=== PATIENT | female | born 1960 | race Caucasian/White ===

== ENCOUNTER 2020-06-30 23:00 | Inpatient (IN) | payer OTHER ==
[~2020-06-30] VITALS: Ht 165.1 cm; Wt 125.0 kg
--- NOTE | 2020-06-30 23:30 | NUR ---
RESPONDED TO STROKE ALERT BED 3, PT IN CT SCAN. DR. IVY FROM [facility] TELEMED READY FOR CONSULT
[2020-06-30] MEDS ORDERED: iohexol 350MG/ML 100ml bottle IV ONE ×2 (23:33→23:34)
--- NOTE | 2020-06-30 23:45 | NUR ---
CHECK ON PT STILL IN CT, HAVING CTA. RETURN TO ROOM, DR. IVY COMPLETES NEURO EXAM. PT FEELS RIGHT ARM IS WEAKER THAN NORMAL, NO DRIFT. DESCRIBES NUMBNESS TO RIGHT HAND AND DECREASED SENSATION TO RIGHT FACE. AFTER MUCH DISCUSSION WITH DR. IVY PT BELIEVES THAT HER SYMPTOMS ARE SIGNIFICANT AND COULD BE DISABILING. B/P IS ELEVATED, IVS BEING STARTED.
--- NOTE | 2020-06-30 23:50 | NUR ---
B/P 215/175 HR 98 LABETELOL 5MG ADMIN ORDER
[2020-06-30] MEDS ORDERED: aspirin 325mg tablet PO ONE (23:55)
--- NOTE | 2020-07-01 00:02 | NUR ---
IAM INCREASED TO 10MG/HR
--- NOTE | 2020-07-01 00:04 | NUR ---
10 MG OF LABETALOL GIVEN PER TELE NEURO MD
[2020-07-01] MEDS ORDERED: LORazepam 2 mg/ml vial IV STA (00:05)
--- NOTE | 2020-07-01 00:10 | NUR ---
Tpa IS MIXED AND READY, CONTINUE TO MANAGE B/P CARDENE IS AT 10MG/HR 2ND IV READY
--- NOTE | 2020-07-01 00:17 | NUR ---
CARDENE INCREASED TO 15MG/HR BP 196/76, HR 83 92%O2ON RA
--- NOTE | 2020-07-01 00:20 | NUR ---
B/P IS STABALIZING, PT NOW REPORTS SYMPTOMS HAVE IMPROVED, HAS MINOR NUMBNESS/TINGLING TO RIGHT 2 FINGERS, SHE NO LONGER FEELS THAT THESE SYMPTOMS WOULD NOT CAUSE A DISABILITY. " I FEEL MUCH BETTER" DR. MOREL AND DR. IVY NOTIFIED OF IMPROVMENT, PLAN TO HOLD ON THE TPA. PT AND DAUGHTER (ON PHONE) VERBALIZE UNDERSTANDING AND AGREE WITH PLAN OF CARE.
--- NOTE | 2020-07-01 00:26 | NUR ---
PLACED ON 3L O2 O2 INCREASED TO 93%
--- NOTE | 2020-07-01 00:26 | NUR ---
183/74, HR 88, 96%O2 3L, TELE NEURO ORDERED ASA 324 AN DTO HOLD tsa
[2020-07-01] MEDS ORDERED: aspirin 325mg tablet PO ONE ×2 (00:30→00:35)
[2020-07-01] MEDS ORDERED: NO HOME MEDS (00:56)
[2020-07-01] MEDS ORDERED: labetalol 20mg/4ml (5mg/ml) syringe IV ONE (01:00)
[2020-07-01] MEDS ORDERED: niCARdipine I.V. 50 MG in normal saline 250ml IV soln 230 ML IV SCH (01:00)
[2020-07-01 01:04] LABS: BASOPHILS # (AUTO) 0.1 X10'3 (0-0.2); BASOPHILS % (AUTO) 0.7 % (0-1); EOSINOPHILS % (AUTO) 0.2 % (0-6); HEMOGLOBIN 14.7 g/dl (12.0-16.0); LYMPHOCYTES % (AUTO) 15.5 % (21-51); MEAN CORPUSCULAR HEMOGLOBIN 28.7 PG (27.0-31.0); MEAN CORPUSCULAR HGB CONC 34.2 g/dL (33.0-36.5); MEAN CORPUSCULAR VOLUME 84.1 FL (78-98); MEAN PLATELET VOLUME 8.4 FL (7.4-10.4); MONOCYTES # (AUTO) 0.4 X10'3 (0-0.9); MONOCYTES % (AUTO) 2.7 % (2-12); NEUTROPHILS # (AUTO) 10.7 X10'3 (1.8-7.7); NEUTROPHILS % (AUTO) 80.9 % (42-75); PLATELET COUNT 271 X10'3 (140-440); RED BLOOD COUNT 5.11 X10'6 (4.20-5.60); RED CELL DISTRIBUTION WIDTH 14.6 % (11.5-14.5); WHITE BLOOD COUNT 13.2 X10'3 (4.5-11.0)
[2020-07-01] MEDS: niCARDipine-NS 40mg/200ml IVPB 200 ML IV SCH ×2 (01:04→04:24)
[2020-07-01 01:13] LABS: PARTIAL THROMBOPLASTIN TIME 28 SECONDS (22-32)
[2020-07-01 01:16] LABS: ALANINE AMINOTRANSFERASE 19 U/L (12-78); ALBUMIN 3.6 G/DL (3.4-5.0); ALBUMIN/GLOBULIN RATIO 0.8 (1.1-1.5); ALKALINE PHOSPHATASE 119 IU/L (46-116); ANION GAP 11 (8-16); ASPARTATE AMINO TRANSFERASE 13 U/L (10-37); BILIRUBIN,TOTAL 0.4 MG/DL (0.1-1.0); BLOOD UREA NITROGEN 18 MG/DL (7-18); BUN/CREATININE RATIO 18.4 (6.6-38.0); CALCIUM 8.7 MG/DL (8.5-10.1); CHLORIDE 101 MMOL/L (99-107); CREATININE 0.98 MG/DL (0.40-0.90); GLUCOSE 141 MG/DL (70-104); POTASSIUM 3.4 MMOL/L (3.5-5.1); SODIUM 138 MMOL/L (135-145); TOTAL CARBON DIOXIDE 25.6 MMOL/L (24-32); TOTAL PROTEIN 8.3 G/DL (6.4-8.2); eGFR 58 ML/MIN
--- NOTE | 2020-07-01 01:17 | NUR ---
PT DOING WELL, SYMPTOMS REMAIN STABLE, 2 FINGERS WITH TINGLING. WEANING CARDENE. NOW AT 10MG/HR.
--- NOTE | 2020-07-01 02:02 | NUR ---
DR. COREAS AT BEDSIDE.
[2020-07-01] MEDS ORDERED: magnesium Cl slow-release 64mg tablet PO PRN (02:10)
[2020-07-01] MEDS ORDERED: potassium Cl 20 mEq SR tablet PO PRN (02:10)
[2020-07-01] MEDS ORDERED: acetaminophen 650mg rectal suppository RC PRN (02:10)
[2020-07-01] MEDS ORDERED: magnesium 4gm in 100ml NS 100 ML IV PRN (02:10)
[2020-07-01] MEDS ORDERED: HYDROcodone/acetaminophen 5mg/325mg tablet PO PRN (02:10)
[2020-07-01] MEDS ORDERED: potassium CL 10mEq/100ml bag 100 ML IV PRN ×2 (02:10)
[2020-07-01] MEDS ORDERED: metoclopramide 5 mg/ml inj IV PRN (02:10)
[2020-07-01] MEDS ORDERED: mag hydrox/Alum hydrox/simeth 30ml oral suspension PO PRN (02:10)
[2020-07-01] MEDS ORDERED: acetaminophen 325mg tablet PO PRN ×2 (02:10)
[2020-07-01] MEDS ORDERED: bisacodyl 10mg suppository rectal RC PRN (02:10)
[2020-07-01] MEDS ORDERED: ondansetron/PF 4mg/2ml inj IV PRN (02:10)
[2020-07-01] MEDS ORDERED: hydrALAZINE 20mg/ml inj. IV PRN ×2 (02:10→08:10)
[2020-07-01] MEDS ORDERED: magnesium hydroxide 30ml (MOM) UD suspension PO PRN (02:10)
[2020-07-01] MEDS ORDERED: magnesium 2GM in 50ml NS 50 ML IV PRN (02:10)
[2020-07-01] MEDS ORDERED: HYDROcodone/acetaminophen 10/325mg tab PO PRN (02:10)
[2020-07-01] MEDS: normal saline 1000ml 1,000 ML IV SCH ×2 (02:22→13:52)
[2020-07-01] MEDS ORDERED: LORazepam 2 mg/ml vial IV PRN (02:25)
[2020-07-01 02:34] LABS: HEMOGLOBIN A1C 5.6 % (4.5-6.2)
[2020-07-01 02:39] LABS: PHOSPHORUS 2.1 MG/DL (2.3-4.5)
[2020-07-01 08:00] VITALS: BP 163/99
[2020-07-01] MEDS: K and/or MAG REPLACEMENT MC SCH ×2 (08:00→20:24)
[2020-07-01] MEDS: potassium Cl 20 mEq SR tablet PO PRN ×3 (10:03→20:53)
[2020-07-01] MEDS: aspirin 325mg tablet PO SCH (10:04)
[2020-07-01] MEDS: atorvastatin 20mg tablet PO SCH (10:04)
[2020-07-01] MEDS: enoxaparin 40mg/0.4ml syringe SUBCUT SCH (10:05)
[2020-07-01 11:00] VITALS: BP 117/58
[2020-07-01] MEDS ORDERED: diazepam inj 5 MG/ML inj. IV ONE (12:05)
[2020-07-01] MEDS ORDERED: diazepam 5mg tablet PO ONE (12:30)
--- NOTE | 2020-07-01 12:35 | NUR ---
New order from Dr Martínez to give pt Valium 5mg PO once before MRI. And to stop the Valium 10mg IV due to pt stating that's too much for her.
[2020-07-01 15:00] VITALS: BP 141/76
--- NOTE | 2020-07-01 15:19 | NUR ---
PAGER ID: [phone] MESSAGE: [id number] Shimon Galeano Unable to do MRI. Severe claustrophobia and too large for procedure. Just FYI. Do 1237
--- NOTE | 2020-07-01 15:34 | NUR ---
Per Dr. Martínez's request, contacted Stroke RN d/t unobtainable MRI. Per Ekta Addendum: 07/01/20 at 1537 by Shraddha Graham RN Continuation... Per Ekta (Stroke RN) submit request for tele neuro consult via intranet and put in Dr. Martínez as requesting physician. Neurologist will reach out to hospitalist and discuss case with him. Instructions carried out.
--- NOTE | 2020-07-01 17:25 | NUR ---
Problems reprioritized. Patient report given, questions answered & plan of care reviewed with Pat RN.
[2020-07-01 18:00] VITALS: BP 140/79
--- NOTE | 2020-07-01 18:19 | NUR ---
PATIENT RESTING WITH NO C/O AT THIS TIME. ORIENTED TO ROOM. CALL LIGHT IN REACH, BED LOW AND LOCKED. Addendum: 07/01/20 at 1920 by Janna Eaton RN Amended: Links added.
[2020-07-01] MEDS ORDERED: temazepam 15mg capsule PO PRN (21:00)
[2020-07-01 22:00] VITALS: BP 133/61
[2020-07-02] MEDS: normal saline 1000ml 1,000 ML IV SCH (01:30)
[2020-07-02 02:00] VITALS: BP 134/69
[2020-07-02 04:39] LABS: CLARITY,URINE CLEAR (Clear); COLOR,URINE STRAW (Yellow); GLUCOSE, URINE NEGATIVE (Neg); KETONES,URINE NEGATIVE (Neg); LEUKOCYTE ESTERASE ,URINE TRACE (Neg); NITRITES, URINE NEGATIVE (Neg); OCCULT BLOOD,URINE TRACE-INTACT (Neg); PROTEIN,URINE NEGATIVE (Neg); UROBILINOGEN,URINE 0.2 E.U/dL (0.2-1.0)
[2020-07-02 04:45] LABS: UA COLLECTION TYPE VOIDED
[2020-07-02 04:46] LABS: URINE AMPHETAMINE SCREEN NEGATIVE (Neg); URINE BARBITUATE SCREEN NEGATIVE (Neg); URINE BENZODIAZEPINES SCREEN NEGATIVE (Neg); URINE CANNABINOID SCREEN NEGATIVE (Neg); URINE COCAINE SCREEN NEGATIVE (Neg); URINE METHADONE SCREEN NEGATIVE (Neg); URINE OPIATE SCREEN NEGATIVE (Neg); URINE PHENCYCLIDINE SCREEN NEGATIVE (Neg); WBC,URINE NONE SEEN /HPF (0-4)
[2020-07-02 04:47] LABS: BACTERIA,URINE NONE SEEN /HPF (Neg); RBC,URINE NONE SEEN /HPF (0-2); SQUAMOUS EPITHELIAL CELL,UR FEW /LPF (FEW)
[2020-07-02 05:46] LABS: BASOPHILS # (AUTO) 0.1 X10'3 (0-0.2); BASOPHILS % (AUTO) 0.9 % (0-1); EOSINOPHILS # (AUTO) 0.2 X10'3 (0-0.9); EOSINOPHILS % (AUTO) 2.1 % (0-6); HEMATOCRIT 38.1 % (35.0-45.0); HEMOGLOBIN 12.9 g/dl (12.0-16.0); LYMPHOCYTES # (AUTO) 3.6 X10'3 (1.1-4.8); LYMPHOCYTES % (AUTO) 34.1 % (21-51); MEAN CORPUSCULAR HEMOGLOBIN 28.7 PG (27.0-31.0); MEAN CORPUSCULAR HGB CONC 33.9 g/dL (33.0-36.5); MEAN CORPUSCULAR VOLUME 84.8 FL (78-98); MEAN PLATELET VOLUME 8.5 FL (7.4-10.4); MONOCYTES # (AUTO) 0.6 X10'3 (0-0.9); MONOCYTES % (AUTO) 6.1 % (2-12); NEUTROPHILS # (AUTO) 5.9 X10'3 (1.8-7.7); NEUTROPHILS % (AUTO) 56.8 % (42-75); PLATELET COUNT 258 X10'3 (140-440); RED BLOOD COUNT 4.49 X10'6 (4.20-5.60); RED CELL DISTRIBUTION WIDTH 14.6 % (11.5-14.5); WHITE BLOOD COUNT 10.4 X10'3 (4.5-11.0)
[2020-07-02 05:52] LABS: ALANINE AMINOTRANSFERASE 16 U/L (12-78); ALBUMIN/GLOBULIN RATIO 0.8 (1.1-1.5); ALKALINE PHOSPHATASE 101 IU/L (46-116); ANION GAP 8 (8-16); ASPARTATE AMINO TRANSFERASE 11 U/L (10-37); BILIRUBIN,TOTAL 0.5 MG/DL (0.1-1.0); BLOOD UREA NITROGEN 15 MG/DL (7-18); BUN/CREATININE RATIO 19.2 (6.6-38.0); CALCIUM 8.2 MG/DL (8.5-10.1); CHLORIDE 108 MMOL/L (99-107); CHOL/HDL RATIO 5.1 (0.00-4.99); CHOLESTEROL 152 MG/DL (0-200); CREATININE 0.78 MG/DL (0.40-0.90); GLUCOSE 111 MG/DL (70-104); HDL CHOLESTEROL 30 MG/DL (35-60); LDL CHOLESTEROL 112 MG/DL (50-100); PHOSPHORUS 2.8 MG/DL (2.3-4.5); POTASSIUM 3.9 MMOL/L (3.5-5.1); SODIUM 142 MMOL/L (135-145); TOTAL CARBON DIOXIDE 25.7 MMOL/L (24-32); TOTAL PROTEIN 6.7 G/DL (6.4-8.2); TRIGLYCERIDES 97 MG/DL (20-135); eGFR 76 ML/MIN
--- NOTE | 2020-07-02 06:25 | NUR ---
Problems reprioritized. Patient report given, questions answered & plan of care reviewed with Catina CALABRESE.
--- NOTE | 2020-07-02 06:31 | NUR ---
Patient in room MED 316. I have received report from BHARATI Dillard and had the opportunity to ask questions and assume patient care.
[2020-07-02] MEDS: K and/or MAG REPLACEMENT MC SCH (08:00)
[2020-07-02] MEDS: aspirin 325mg tablet PO SCH (09:04)
[2020-07-02] MEDS: atorvastatin 20mg tablet PO SCH (09:10)
[2020-07-02] MEDS: enoxaparin 40mg/0.4ml syringe SUBCUT SCH (09:11)
[2020-07-02 10:00] VITALS: BP 158/56
[2020-07-02] MEDS ORDERED: ASPI81TA52 PO (11:03)
--- NOTE | 2020-07-02 13:37 | NUR ---
Pt stable for discharge home. Provided discharge instructions and education. Answered any questions/concerns pt may have. No new medications needed to be sent to pharmacy. PIV removed, cannula intact. Belongings sent with pt. Pt walked down to lobby where pt friend picked her up.
== END 2020-07-02 13:38 | disposition home or self-care (01) | DRG 69 ==
LOC: ER 23:01 → ED HOLD 07-01 02:09 → PCU 3S 07-01 08:16 → MED 3N 07-01 17:46
PROVIDERS: ADMIT Family Medicine; ATTEND Family Medicine
DX: G45.9 Transient cerebral ischemic attack, unspecified (principal); I16.1 Hypertensive emergency; Z68.45 Body mass index [BMI] 70 or greater, adult; E03.9 Hypothyroidism, unspecified; E66.01 Morbid (severe) obesity due to excess calories; E87.6 Hypokalemia; F43.10 Post-traumatic stress disorder, unspecified; D72.829 Elevated white blood cell count, unspecified; J45.909 Unspecified asthma, uncomplicated; Z86.73 Personal history of transient ischemic attack (TIA), and cerebral infarction without residual deficits
CPT/HCPCS: 36415; 70450; 70496; 70498; 71045; 80053; 80061; 80305; 81001; 82948; 83036; 83735; 83880; 84100; 84443; 85025; 85610; 85651; 85730; 86140; 86885; 86900; 86901; 87081; 93005; 93306; 97161; 97530; 99291; G0378; J1650; J2060; J3490; J7030; J7050; Q9967

== ENCOUNTER 2020-07-03 16:06 | Inpatient (IN) | payer OTHER ==
[~2020-07-03] VITALS: Ht 165.1 cm; Wt 141.0 kg
[~2020-07-03 16:06] MED LIST: ASPI81TA52 PO
[2020-07-03 16:50] LABS: BASOPHILS # (AUTO) 0.1 X10'3 (0-0.2); BASOPHILS % (AUTO) 0.8 % (0-1); EOSINOPHILS # (AUTO) 0.1 X10'3 (0-0.9); EOSINOPHILS % (AUTO) 0.9 % (0-6); HEMATOCRIT 42.5 % (35.0-45.0); HEMOGLOBIN 14.1 g/dl (12.0-16.0); LYMPHOCYTES # (AUTO) 3.1 X10'3 (1.1-4.8); LYMPHOCYTES % (AUTO) 24.5 % (21-51); MEAN CORPUSCULAR HEMOGLOBIN 27.8 PG (27.0-31.0); MEAN CORPUSCULAR HGB CONC 33.2 g/dL (33.0-36.5); MEAN PLATELET VOLUME 8.6 FL (7.4-10.4); MONOCYTES # (AUTO) 0.6 X10'3 (0-0.9); MONOCYTES % (AUTO) 5.1 % (2-12); NEUTROPHILS # (AUTO) 8.6 X10'3 (1.8-7.7); NEUTROPHILS % (AUTO) 68.7 % (42-75); PLATELET COUNT 283 X10'3 (140-440); RED BLOOD COUNT 5.06 X10'6 (4.20-5.60); RED CELL DISTRIBUTION WIDTH 14.6 % (11.5-14.5); WHITE BLOOD COUNT 12.5 X10'3 (4.5-11.0)
[2020-07-03 17:05] LABS: PARTIAL THROMBOPLASTIN TIME 30 SECONDS (22-32)
[2020-07-03 17:07] LABS: ALANINE AMINOTRANSFERASE 22 U/L (12-78); ALBUMIN 3.5 G/DL (3.4-5.0); ALBUMIN/GLOBULIN RATIO 0.8 (1.1-1.5); ALKALINE PHOSPHATASE 127 IU/L (46-116); ANION GAP 9 (8-16); ASPARTATE AMINO TRANSFERASE 15 U/L (10-37); BILIRUBIN,TOTAL 0.5 MG/DL (0.1-1.0); BLOOD UREA NITROGEN 13 MG/DL (7-18); BUN/CREATININE RATIO 15.9 (6.6-38.0); CALCIUM 8.6 MG/DL (8.5-10.1); CHLORIDE 102 MMOL/L (99-107); CREATININE 0.82 MG/DL (0.40-0.90); GLUCOSE 100 MG/DL (70-104); POTASSIUM 3.6 MMOL/L (3.5-5.1); SODIUM 139 MMOL/L (135-145); TOTAL CARBON DIOXIDE 27.8 MMOL/L (24-32); TOTAL PROTEIN 7.8 G/DL (6.4-8.2); eGFR 71 ML/MIN
[2020-07-03] MEDS ORDERED: mag hydrox/Alum hydrox/simeth 30ml oral suspension PO PRN (17:20)
[2020-07-03] MEDS ORDERED: magnesium hydroxide 30ml (MOM) UD suspension PO PRN (17:20)
[2020-07-03] MEDS ORDERED: acetaminophen 325mg tablet PO PRN (17:20)
[2020-07-03] MEDS ORDERED: ondansetron/PF 4mg/2ml inj IV PRN (17:20)
[2020-07-03 17:36] LABS: CHOL/HDL RATIO 4.6 (0.00-4.99); CHOLESTEROL 157 MG/DL (0-200); HDL CHOLESTEROL 34 MG/DL (35-60); LDL CHOLESTEROL 110 MG/DL (50-100); TRIGLYCERIDES 94 MG/DL (20-135)
[2020-07-03] MEDS ORDERED: lisinopril 10 MG tablet PO ONE (17:55)
[2020-07-03] MEDS: normal saline 1000ml 1,000 ML IV SCH (17:57)
--- NOTE | 2020-07-03 19:45 | NUR ---
Report received from Rafael from ER. Patient arrived at floor at 1944. [id number].
[2020-07-03 19:55] VITALS: BP 210/84
--- NOTE | 2020-07-03 20:08 | NUR ---
PAGER ID: [phone] MESSAGE: Froylan Billy 60F Rm [id number], admitted for CVA with hx of hypothyroidism, Uncontrolled HTN. DC yesterday from [facility]. CT of Head + for nonhem stroke. Pt. is alert oriented x4. No deficits noted. Request diet change from NPO. Dennis O/N [id number]. Addendum: 07/04/20 at 0214 by Magnus Woodruff RN Dr. Diaz called back and ordered Heart Healthy diet for the patient. No other orders given at this time
[2020-07-03] MEDS: clopidogrel 75mg tablet PO SCH (21:08)
[2020-07-03] MEDS: heparin, porcine 5000 units/ml vial SQ SCH (21:09)
[2020-07-03 22:00] VITALS: BP 216/101
[2020-07-04] VITALS (7 sets, daily range): BP systolic 149–188; BP diastolic 69–103
[2020-07-04] MEDS: normal saline 1000ml 1,000 ML IV SCH ×3 (03:26→23:17)
--- NOTE | 2020-07-04 06:10 | NUR ---
received report from onel de la rosa
--- NOTE | 2020-07-04 06:14 | NUR ---
Problems reprioritized. Patient report given to Chris, questions answered & plan of care reviewed with .
[2020-07-04] MEDS: lisinopril 10 MG tablet PO SCH (07:17)
[2020-07-04] MEDS: aspirin 81mg tablet.DR PO SCH (07:17)
[2020-07-04] MEDS: heparin, porcine 5000 units/ml vial SQ SCH ×2 (07:18→19:51)
[2020-07-04] MEDS: clopidogrel 75mg tablet PO SCH (07:18)
[2020-07-04] MEDS ORDERED: atorvastatin 10mg tablet PO SCH (08:00)
[2020-07-04] MEDS ORDERED: amLODIPine 5mg tablet PO ONE (13:00)
[2020-07-04] MEDS ORDERED: hydrALAZINE 20mg/ml inj. IV PRN (14:50)
--- NOTE | 2020-07-04 18:15 | NUR ---
RECEIVED REPORT FROM BETI CALABRESE AND ASSUMED PATIENT CARE
--- NOTE | 2020-07-04 18:18 | NUR ---
gave report to onel brumfield
[2020-07-05 02:00] VITALS: BP 158/66
[2020-07-05 06:00] VITALS: BP 185/83
--- NOTE | 2020-07-05 06:38 | NUR ---
Patient in room ORTHO 4021A. I have received report from BHARATI Horner and had the opportunity to ask questions and assume patient care.
[2020-07-05] MEDS: aspirin 81mg tablet.DR PO SCH (07:56)
[2020-07-05] MEDS: clopidogrel 75mg tablet PO SCH (07:58)
[2020-07-05] MEDS: lisinopril 10 MG tablet PO SCH (07:59)
[2020-07-05] MEDS ORDERED: amLODIPine 5mg tablet PO SCH (08:00)
[2020-07-05] MEDS ORDERED: HYDROchlorothiazide 25mg tablet PO SCH (08:00)
[2020-07-05] MEDS ORDERED: atorvastatin 20mg tablet PO SCH (08:00)
[2020-07-05] MEDS: heparin, porcine 5000 units/ml vial SQ SCH (08:01)
[2020-07-05] MEDS: normal saline 1000ml 1,000 ML IV SCH (08:04)
[2020-07-05 10:00] VITALS: BP 175/102
--- NOTE | 2020-07-05 11:40 | NUR ---
Called Maya Payne, Case Management, left message that pt needs home health & occupational therapy upon DC.
[2020-07-05] MEDS ORDERED: CLOP75TA35 PO (14:02)
[2020-07-05] MEDS ORDERED: HCTZ25T PO (14:02)
[2020-07-05] MEDS ORDERED: LISI10TA4 PO (14:02)
[2020-07-05] MEDS ORDERED: NOR5T PO (14:02)
[2020-07-05] MEDS ORDERED: ATOR20TA66 PO (14:02)
--- NOTE | 2020-07-05 14:35 | NUR ---
Student documentation: I have reviewed assessment, performed and documented by Igor Case [facility].
--- NOTE | 2020-07-05 17:27 | NUR ---
DC instructions given to pt, questions answered. IV removed, canula intact, no complications. Assisted pt in dressing and gathering belongings. Wheeled down to private vehicle in stable condition.
== END 2020-07-05 17:05 | disposition home or self-care (01) | DRG 65 ==
LOC: ER 16:06 → ED HOLD 17:17 → EDBEDREQ 19:12 → ORTHO 4S 19:42
PROVIDERS: ADMIT Family Medicine; ATTEND Family Medicine
DX: I63.9 Cerebral infarction, unspecified (principal); Z68.43 Body mass index [BMI] 50.0-59.9, adult; E66.01 Morbid (severe) obesity due to excess calories; E03.9 Hypothyroidism, unspecified; I10 Essential (primary) hypertension; Z88.0 Allergy status to penicillin; Z88.1 Allergy status to other antibiotic agents
CPT/HCPCS: 36415; 70450; 71045; 80053; 80061; 85025; 85610; 85730; 87081; 92508; 92616; 93005; 97110; 97161; 97530; 99285; G0378; J0360; J1644; J7030